=== PATIENT | male | born 1970 | race Caucasian/White ===

== ENCOUNTER 2017-01-31 17:51 | Emergency (ER) | payer BC ==
--- NOTE | 2017-02-01 19:14 | ER ---
ADMIT: 01/31/2017 RM/LOC: ER [facility] MR#: [id number] [place], [place] [id number] [address] [place] [address] Emergency Room Report SEX: M AGE: 46 : 1970 DATE: 01/31/2017 HISTORY OF PRESENT ILLNESS: The patient is a 46-year-old male with past medical history of gastroesophageal reflux disease, came to the ER with chief complaint of intermittent left arm numbness and palpitation and mild chest pain. The patient states the pain sometimes increases with higher stress level and the patient states recently he has been in a very high stressful situation. The patient states at the moment pain is not present and is not related to exertion. PHYSICAL EXAMINATION: VITAL SIGNS: The patient has stable vitals, in no obvious pain or distress, EKG showed normal sinus rhythm with a rate of [address] or T changes or Q-waves. HEENT: Head and neck were noncontributory. CHEST: Clear bilaterally to auscultation, normal cardiac sounds without any extra sounds. ABDOMEN: Soft, no pulsating mass in the abdomen. EXTREMITIES: There are no swelling and no tenderness. LABORATORY DATA: Chest x-ray was negative for infiltration or effusions or cardiomegaly, there is some questionable left lower lung atelectasis, the patient also states last week he had a previous viral infection. Troponin I was negative, sodium was 145 with potassium of 3.6 and glucose of 111. WBC was 7.8, hemoglobin of 15 and platelets of 208,000. At the moment, the patient is pain free and states that the palpitation is mostly resolved. The patient was advised to follow up with the primary doctor, advised on counseling or finding a way to deal with stressful situations per his discretion. He acknowledged, understood it, and he agreed upon it. The patient was stable to be discharged home. Malvin Bearden MD/ galilea JOB #: [id number] CC: Omkar Zimmerman MD, Attending Physician UNKNOWN, Family Physician
== END 2017-01-31 20:15 | disposition home or self-care (01) ==
LOC: ER 17:51
DX: R07.89 Other chest pain (principal); R00.2 Palpitations; K21.9 Gastro-esophageal reflux disease without esophagitis; Z90.49 Acquired absence of other specified parts of digestive tract